=== PATIENT | male | born 1945 | race Caucasian/White ===

== ENCOUNTER → 2016-07-06 | Day surgery (SDC) | payer BC, MEDICARE ==
[~2016-07-06] VITALS: Ht 182.9 cm; Wt 111.8 kg
[~2016-07-06] MED LIST: NORCO 5-325 TA1 EACH PO; ZOCOR20 MG PO
--- NOTE | ~2016-07-06 | OR ---
PATIENT'S NAME: DAY DAVIDSON [facility] AGE: 71 Y [address] ROOM: [place] [id number] LOCATION: [facility] [place] DATE: 07/06/2016 OR/Procedure Report DISCHARGE DATE: FAMILY PHYSICIAN: BAIRON PUENTE MD ATTENDING PHYSICIAN: Shoaib Villalta SURGEON: Shoaib Villalta MD FILTER WASHER: DATE OF PROCEDURE: 07/06/2016 PREOPERATIVE DIAGNOSES: 1. Stage III adenocarcinoma of the colon. 2. Need for chronic IV access for chemotherapy. POSTOPERATIVE DIAGNOSES: 1. Stage III adenocarcinoma of the colon. 2. Need for chronic IV access for chemotherapy. PROCEDURE PERFORMED: Insertion of a left subclavian based PowerPort. ANESTHESIA: IV sedation with 20 mL of 1% Xylocaine. SPECIMEN: None. INDICATION: The patient is a 71-year-old young man who recently underwent a laparoscopic-assisted right hemicolectomy. He has stage III malignancy. He has been reviewed by Dr. Lilly and is to undergo chemotherapy. DESCRIPTION OF PROCEDURE: After informed consent, the patient was taken to the operating room, and after IV sedation, the anterior left chest and neck were prepped and draped into a sterile field. Time-out performed. We confirmed the patient, planned procedure and administration of preop antibiotics. He was placed in Trendelenburg position. Local anesthetic infiltrated beneath the left clavicle and access to the left subclavian vein was accomplished without difficulty. The guidewire positioned into the superior vena cava and confirmed with fluoro. Next, additional local anesthetic infiltrated on top of the anterior medial left chest. Transverse incision was made and a subcutaneous pocket created on top of the pectoralis fascia. Next, over the wire, introducer and sheath were placed followed by removal of the introducer and the wire. Through the sheath, the tubing was positioned into the superior vena cava above the right atrium. The sheath was split and removed. The tubing tunneled down to the port where it was secured. The port was secured down to the pectoralis fascia with 3-0 silks. Subcutaneous tissue was closed with 3-0 Vicryl. The skin incision was closed with subcuticular 4-0 Vicryl. We had return of venous PATIENT'S NAME: DAY DAVIDSON [facility] AGE: 71 Y [address] ROOM: [place], [place] [address] LOCATION: [facility] [place] ADMIT DATE: 07/06/2016 OR/Procedure Report DISCHARGE DATE: FAMILY PHYSICIAN: BAIRON PUENTE MD ATTENDING PHYSICIAN: Shoaib Villalta blood. It was then flushed with Hep-Lock. Needle left in place. Steri- Strips placed on the wound and a sterile dressing. We checked one final confirmation of tip position with fluoro. No complicating features. Instrument, sponge and needle count were correct. The patient tolerated the procedure well and transferred to recovery room in stable condition. SHOAIB VILLALTA MD WTS/modl /[id number] d: 07/08/16 0752 t: 07/08/16 1741, OPERATIVE SUMMARY
== END | disposition disaster alternative care site (69) ==
LOC: GPOC 07-03 14:00 → GSDC 07:00
PROC: 0JH63XZ Insertion of Tunneled Vascular Access Device into Chest Subcutaneous Tissue and Fascia, Percutaneous Approach (ICD-10-PCS; principal; 2016-07-06)
DX: C18.9 Malignant neoplasm of colon, unspecified (principal); Z45.2 Encounter for adjustment and management of vascular access device; Z96.653 Presence of artificial knee joint, bilateral; Z90.49 Acquired absence of other specified parts of digestive tract
CPT/HCPCS: C1788; J0690; J1642; J2001; J7120